=== PATIENT | female | born 1990 | race Caucasian/White ===

== ENCOUNTER 2016-10-05 21:00 | Emergency (ER) | payer OTHER ==
[2016-10-05 21:28] VITALS: BP 127/64
[2016-10-05] MEDS ORDERED: ONDANSETRON 4 MG/2 ML VIAL IVP STA (22:26)
[2016-10-05] MEDS ORDERED: KETOROLAC 30 MG/ML 1 ML VIAL IVP STA (22:26)
[2016-10-05] MEDS ORDERED: SODIUM CHLORIDE 0.9% 500 ML IV STA (22:26)
--- NOTE | 2016-10-05 22:31 | ED ---
Abdominal Pain HPI - General Chief Complaint: Abdominal Pain Stated Complaint: abdominal pain Time Seen by Provider: 10/05/16 21:46 Source: patient Mode of arrival: ambulatory Limitations: no limitations - History of Present Illness Initial Comments: This patient is a 26-year-old woman presenting to be evaluated for right-sided flank and abdominal pain. She states that the pain started about 36 hours ago, yesterday morning. She indicates the flank and right upper quadrant along the right costal margin. She states it feels like someone had punched her, but she denies any trauma or injury. The patient states that the pain is moderate, constant, and is accompanied by nausea. She has not noted any worsening or relieving factors. She states she saw the doctor but they could not tell her what it was. The patient denies any vomiting. She has not had a change in bowel movements or urination. She states that she is due to start her period next week, and that the last one was normal. No vaginal discharge. She does not have any chest pain, cough, or shortness of breath. She has not had any pain into the legs. MD Complaint: abdominal pain, flank pain Onset/Timin -: hour(s) Location: RUQ, R flank Radiation: none Severity: moderate Quality: other (Like I was punched) Consistency: constant Improves With: nothing Worsens With: nothing Associated Symptoms: nausea - Related Data Home Medications Medication Instructions Recorded Confirmed Cholecalciferol [Vitamin D3] 1,000 unit PO DAILY 10/05/16 10/05/16 Clindamycin Gel [Clindamycin 1 applic TOPICAL BID 10/05/16 10/05/16 Phosphate] Fluticasone Nasal [place] [Flonase 1 spr EA NOSTRIL DAILY PRN 10/05/16 10/05/16 Nasal [place]] Loratadine [Claritin] 10 mg PO DAILY 10/05/16 10/05/16 Minocycline HCl [Minocin] 100 mg PO Q12HR 10/05/16 10/05/16 Norgestimate-Ethinyl Estradiol 1 tab PO DAILY 10/05/16 10/05/16 [Ortho Tri-Cyclen Lo Tablet] PARoxetine HCL [Paxil] 10 mg PO DAILY 10/05/16 10/05/16 Ranitidine HCl 75 mg PO HS 10/05/16 10/05/16 Turmeric Root Extract [Turmeric] 500 mg PO DAILY 10/05/16 10/05/16 Previous Rx's Medication Instructions Recorded Dicyclomine [Bentyl] 20 mg PO QID #15 tablet 10/06/16 Allergies Allergy/AdvReac Type Severity Reaction Status Date / Time cephalexin monohydrate Allergy Rash/Hives Verified 10/05/16 21:57 [From Keflex] clemastine fumarate Allergy Fainting Verified 10/05/16 21:57 [From Tavist] Review of Systems ROS Statement: Those systems with pertinent positive or pertinent negative responses have been documented in the HPI. ROS Other: All systems not noted in ROS Statement are negative. Constitutional: Denies: fever, chills Respiratory: Denies: cough, dyspnea Cardiovascular: Denies: chest pain, palpitations, edema, syncope Gastrointestinal: Reports: abdominal pain, nausea. Denies: vomiting, diarrhea, constipation, melena, hematochezia Genitourinary: Denies: dysuria, frequency, hematuria, discharge, abnormal menses Musculoskeletal: Denies: back pain Skin: Denies: rash Neurological: Denies: headache, weakness, numbness Past Medical History Past Medical History: No Reported History Additional Past Medical History / Comment(s): lower back pain, sciatica History of Any Multi-Drug Resistant Organisms: None Reported Past Surgical History: No Surgical Hx Reported Past Psychological History: No Psychological Hx Reported Smoking Status: Current some day smoker Past Alcohol Use History: Occasional Past Drug Use History: Marijuana General Exam Limitations: no limitations General appearance: alert, in no apparent distress, obese Head exam: Present: atraumatic, normocephalic Eye exam: Present: normal appearance. Absent: scleral icterus, conjunctival injection ENT exam: Present: normal oropharynx, mucous membranes moist Neck exam: Present: normal inspection Respiratory exam: Present: normal lung sounds bilaterally. Absent: respiratory distress, wheezes, rales, rhonchi, stridor, chest wall tenderness Cardiovascular Exam: Present: regular rate, normal rhythm, normal heart sounds. Absent: systolic murmur, diastolic murmur, rubs, gallop GI/Abdominal exam: Present: soft, tenderness (The patient does have some moderate right upper quadrant tenderness, without rebound or guarding. The Robles's sign is equivocal.), normal bowel sounds. Absent: distended, guarding , rebound, rigid, organomegaly, mass, pulsatile mass, hernia Extremities exam: Present: normal inspection, normal capillary refill. Absent: pedal edema, calf tenderness Back exam: Present: normal inspection. Absent: CVA tenderness (R), CVA tenderness (L) Neurological exam: Present: alert Skin exam: Present: warm, dry, intact, normal color. Absent: rash Course Vital Signs 10/05/16 21:24 Temperature 98.9 F Pulse Rate 89 Respiratory 16 Rate Blood Pressure 127/64 O2 Sat by Pulse 100 Oximetry Medical Decision Making - Lab Data Result diagrams: 10/05/16 21:34 10/05/16 21:54 Lab Results 10/05/16 10/05/16 10/05/16 Range/Units 21:34 21:54 22:34 WBC 9.1 (3.8-10.6) k/uL RBC 4.73 (3.80-5.40) m/uL Hgb 12.7 (11.4-16.0) gm/dL Hct 38.9 (34.0-46.0) % MCV 82.3 (80.0-100.0) fL MCH 26.9 (25.0-35.0) pg MCHC 32.7 (31.0-37.0) g/dL RDW 13.3 (11.5-15.5) % Plt Count 267 (150-450) k/uL Neutrophils % 64 % Lymphocytes % 28 % Monocytes % 4 % Eosinophils % 2 % Basophils % 1 % Neutrophils # 5.8 (1.3-7.7) k/uL Lymphocytes # 2.6 (1.0-4.8) k/uL Monocytes # 0.4 (0-1.0) k/uL Eosinophils # 0.1 (0-0.7) k/uL Basophils # 0.1 (0-0.2) k/uL Sodium 139 (137-145) mmol/L Potassium 4.2 (3.5-5.1) mmol/L Chloride 105 (98-107) mmol/L Carbon Dioxide 24 (22-30) mmol/L Anion Gap 10 mmol/L BUN 12 (7-17) mg/dL Creatinine 0.91 (0.52-1.04) mg/dL Est GFR (MDRD) Af Amer >60 (>60 ml/min/1.73 sqM) Est GFR (MDRD) Non-Af >60 (>60 ml/min/1.73 sqM) Glucose 86 (74-99) mg/dL Calcium 9.4 (8.4-10.2) mg/dL Total Bilirubin 0.4 (0.2-1.3) mg/dL AST 24 (14-36) U/L ALT 24 (9-52) U/L Alkaline Phosphatase 67 (38-126) U/L Total Protein 7.9 (6.3-8.2) g/dL Albumin 4.1 (3.5-5.0) g/dL Amylase 57 (30-110) U/L Lipase 139 (23-300) U/L Urine Color Yellow Urine Appearance Clear (Clear) Urine pH 5.5 (5.0-8.0) Ur Specific [place] 1.025 (1.001-1.035) Urine Protein Trace H (Negative) Urine Glucose (UA) Negative (Negative) Urine Ketones Negative (Negative) Urine Blood Small H (Negative) Urine Nitrite Negative (Negative) Urine Bilirubin Negative (Negative) Urine Urobilinogen <2.0 (<2.0) mg/dL Ur Leukocyte Esterase Negative (Negative) Urine RBC 6 H (0-5) /hpf Ur Squamous Epith Cells 1 (0-4) /hpf Urine Mucus Rare H (None) /hpf Urine HCG, Qual (Not Detectd) 10/05/16 Range/Units 22:34 WBC (3.8-10.6) k/uL RBC (3.80-5.40) m/uL Hgb (11.4-16.0) gm/dL Hct (34.0-46.0) % MCV (80.0-100.0) fL MCH (25.0-35.0) pg MCHC (31.0-37.0) g/dL RDW (11.5-15.5) % Plt Count (150-450) k/uL Neutrophils % % Lymphocytes % % Monocytes % % Eosinophils % % Basophils % % Neutrophils # (1.3-7.7) k/uL Lymphocytes # (1.0-4.8) k/uL Monocytes # (0-1.0) k/uL Eosinophils # (0-0.7) k/uL Basophils # (0-0.2) k/uL Sodium (137-145) mmol/L Potassium (3.5-5.1) mmol/L Chloride (98-107) mmol/L Carbon Dioxide (22-30) mmol/L Anion Gap mmol/L BUN (7-17) mg/dL Creatinine (0.52-1.04) mg/dL Est GFR (MDRD) Af Amer (>60 ml/min/1.73 sqM) Est GFR (MDRD) Non-Af (>60 ml/min/1.73 sqM) Glucose (74-99) mg/dL Calcium (8.4-10.2) mg/dL Total Bilirubin (0.2-1.3) mg/dL AST (14-36) U/L ALT (9-52) U/L Alkaline Phosphatase (38-126) U/L Total Protein (6.3-8.2) g/dL Albumin (3.5-5.0) g/dL Amylase (30-110) U/L Lipase (23-300) U/L Urine Color Urine Appearance (Clear) Urine pH (5.0-8.0) Ur Specific [place] (1.001-1.035) Urine Protein (Negative) Urine Glucose (UA) (Negative) Urine Ketones (Negative) Urine Blood (Negative) Urine Nitrite (Negative) Urine Bilirubin (Negative) Urine Urobilinogen (<2.0) mg/dL Ur Leukocyte Esterase (Negative) Urine RBC (0-5) /hpf Ur Squamous Epith Cells (0-4) /hpf Urine Mucus (None) /hpf Urine HCG, Qual Not Detected (Not Detectd) Disposition Clinical Impression: Flank pain Disposition: HOME SELF-CARE Condition: Fair Instructions: Abdominal Pain (ED) Prescriptions: Dicyclomine [Bentyl] 20 mg PO QID #15 tablet Referrals: Talya Pierre DO [Primary Care Provider] - 1-2 days
[2016-10-05 22:46] LABS: Basophils # (A) 0.1 k/uL (0-0.2); Basophils % (A) 1 %; CH 26.8; CHCM 32.6; Eosinophils # (A) 0.1 k/uL (0-0.7); Eosinophils % (A) 2 %; HCT 38.9 % (34.0-46.0); HDW 2.44; HGB 12.7 gm/dL (11.4-16.0); Luc # (Auto) 0.18; Luc % (Auto) 2; Lymphocytes # (A) 2.6 k/uL (1.0-4.8); Lymphocytes % (A) 28 %; MCH 26.9 pg (25.0-35.0); MCHC 32.7 g/dL (31.0-37.0); MCV 82.3 fL (80.0-100.0); Mean Platelet Volume 7.7; Monocytes # (A) 0.4 k/uL (0-1.0); Monocytes % (A) 4 %; Neutrophils # (A) 5.8 k/uL (1.3-7.7); Neutrophils % (A) 64 %; RBC 4.73 m/uL (3.80-5.40); RDW 13.3 % (11.5-15.5); WBC 9.1 k/uL (3.8-10.6); WBC (Perox) 9.65
[2016-10-05 22:54] LABS: ALT 24 U/L (9-52); AST 24 U/L (14-36); Alkaline Phosphatase 67 U/L (38-126); Amylase 57 U/L (30-110); Anion Gap 10 mmol/L; Blood Urea Nitrogen 12 mg/dL (7-17); Calcium 9.4 mg/dL (8.4-10.2); Carbon Dioxide 24 mmol/L (22-30); Chloride 105 mmol/L (98-107); Glucose 86 mg/dL (74-99); Non-African American GFR(MDRD) >60 (>60 ml/min/1.73 sqM); Potassium 4.2 mmol/L (3.5-5.1); Sodium 139 mmol/L (137-145); Total Bilirubin 0.4 mg/dL (0.2-1.3); Total Protein 7.9 g/dL (6.3-8.2)
[2016-10-06 00:01] LABS: Appearance,Urine Clear (Clear); Bilirubin,Urine Negative (Negative); Glucose,Urine (UA) Negative (Negative); Ketones,Urine Negative (Negative); Leukocyte Esterase,Urine Negative (Negative); Mucus,Urine Rare /hpf; Nitrite,Urine Negative (Negative); PH, Urine 5.5 (5.0-8.0); Particle Count 4173; Protein,Urine Trace (Negative); RBC,Urine 6 /hpf (0-5); Specific Gravity,Urine 1.025 (1.001-1.035); Squamous Epithelial Cell,Urine 1 /hpf (0-4); UA Billing (MACRO vs. MICRO) MICRO; Urobilinogen,Urine <2.0 mg/dL (<2.0)
--- NOTE | 2016-10-06 00:37 | US ---
EXAM: US Abdomen Limited, Right Upper Quadrant. CLINICAL HISTORY: Reason: Pain, attention RUQ TECHNIQUE: Real-time ultrasound of the right upper quadrant with image documentation. COMPARISON: No relevant prior studies available. FINDINGS: Liver: Mild hepatomegaly with hepatic span of 19.5 cm. No discrete hepatic lesion is seen. Gallbladder: Unremarkable. No gallstones. Common bile duct: Unremarkable as visualized. No stones. No dilation. Pancreas: Unremarkable as visualized. Right kidney: Unremarkable. No stones. No solid mass. No hydronephrosis. IMPRESSION: 1. No evidence of gallstones or biliary ductal dilatation. 2. Mild hepatomegaly.
[2016-10-06] MEDS ORDERED: MORPHINE SULFATE 4 MG/ML SYRINGE IV STA (01:06)
[2016-10-06 01:24] VITALS: PULSE 88; RESP 18; TEMP 98.1
== END 2016-10-06 01:24 | disposition home or self-care (01) ==
LOC: EC 21:00
DX: R10.11 Right upper quadrant pain (principal); R11.0 Nausea; E66.9 Obesity, unspecified; Z68.38 Body mass index [BMI] 38.0-38.9, adult; F17.200 Nicotine dependence, unspecified, uncomplicated; Z79.899 Other long term (current) drug therapy; Z79.3 Long term (current) use of hormonal contraceptives; Z88.1 Allergy status to other antibiotic agents; Z88.8 Allergy status to other drugs, medicaments and biological substances
CPT/HCPCS: 36415; 80053; 82150; 83690; 85025; 81001; 81025; 76705; 99284; 96374; 96375 ×2; 96361 ×3; J2270; J2405; J1885

== ENCOUNTER → 2016-10-09 | Outpatient (CLI) | payer OTHER ==
--- NOTE | 2016-10-09 17:07 | NM ---
EXAMINATION TYPE: NM hepatobiliary w EF DATE OF EXAM: 10/09/2016 5:01 PM COMPARISON: NONE HISTORY: TECHNIQUE: After the intravenous administration of 5.4 mCi Tc 99m Mebrofenin hepatobiliary scintigrap hy is performed. Immediate images post injection. FINDINGS: There is prompt uptake of the liver that has normal size and contour. There is no focal liver defect. There is tracer in the gallbladder at 10 minutes and tracer in the small bowel at 16 minutes which e xcludes obstruction of the cystic duct and the common bile duct. The tracer is mostly cleared from th e liver at 60 minutes. After the ensure there is prompt contraction of the gallbladder. The ejection fraction is 76%. IMPRESSION: Normal hepatobiliary scan. Normal gallbladder ejection fraction.
== END | disposition home or self-care (01) ==
LOC: RADNMMAIN 14:49
PROVIDERS: ATTEND Family Medicine
DX: R10.11 Right upper quadrant pain (principal)
CPT/HCPCS: 78226; A9537

== ENCOUNTER 2016-12-10 08:11 | Day surgery (SDC) | payer OTHER ==
[2016-12-07 18:00] VITALS: BMI 38.7
[~2016-12-10 08:11] MED LIST: LACTATED RINGERS 1,000 ML IV SCH; LIDOCAINE 1% 20 ML VIAL (10MG/ML) FOR IV START INTRADERMA PRN
[2016-12-10] MEDS ORDERED: MIDAZOLAM 2 MG/2 ML VIAL IV ONE (08:36)
[2016-12-10 08:45] VITALS: TEMP 98.6
[2016-12-10] MEDS ORDERED: PROPOFOL 10 MG/ML 20 ML VIAL IV ONE (09:14)
[2016-12-10] MEDS ORDERED: LIDOCAINE 1% INJ 10MG/ML (20 ML MDV) ONE (09:14)
--- NOTE | 2016-12-10 09:16 | P.GSHP ---
History of Present Illness H&P Date: 12/10/16 Chief Complaint: Right upper quadrant pain This is a 18-year-old female who presents today for EGD. She's had issues right upper quadrant pain. Her recent ultrasound and HIDA scan are within normal limits. Patient has complaints of some pain after she eats. She she will be evaluated for peptic ulcer disease. - Constitutional Constitutional: Reports as per HPI Past Medical History Past Medical History: GERD/Reflux, Skin Disorder Additional Past Medical History / Comment(s): lower back pain, sciatica, Hidradenitis Suppurativa skin disorder., allergies., asthma as a child., states having RUQ abdominal pain. History of Any Multi-Drug Resistant Organisms: None Reported Past Surgical History: No Surgical Hx Reported Additional Past Anesthesia/Blood Transfusion Reaction / Comment(s): Has never received anesthesia. Past Psychological History: Anxiety, Depression Smoking Status: Current every day smoker Past Alcohol Use History: Occasional Additional Past Alcohol Use History / Comment(s): STATES >7 DRINKS PER WEEK. SMOKES 8-10 CIGARETTES /DAY. SMOKING FOR 8 YEARS. Past Drug Use History: Marijuana Additional Drug Use History / Comment(s): CURRENT MARIJUANA USE. - Past Family History Mother Family Medical History: No Reported History Medications and Allergies Home Medications Medication Instructions Recorded Confirmed Type Cholecalciferol [Vitamin D3] 4,000 unit PO DAILY 10/05/16 12/10/16 History Loratadine [Claritin] 10 mg PO DAILY 10/05/16 12/10/16 History Minocycline HCl [Minocin] 100 mg PO DAILY 10/05/16 12/10/16 History Norgestimate-Ethinyl Estradiol 1 tab PO DAILY 10/05/16 12/10/16 History [Ortho Tri-Cyclen Lo Tablet] PARoxetine HCL [Paxil] 10 mg PO DAILY 10/05/16 12/10/16 History Aspirin 650 mg PO Q8HR PRN 12/07/16 12/10/16 History Dicyclomine [Bentyl] 20 mg PO DAILY PRN 12/07/16 12/10/16 History Esomeprazole Magnesium [NexIUM] 20 mg PO DAILY 12/07/16 12/10/16 History Ibuprofen [Motrin] 800 mg PO Q8HR PRN 12/07/16 12/10/16 History Allergies Allergy/AdvReac Type Severity Reaction Status Date / Time cephalexin monohydrate Allergy Rash/Hives Verified 12/10/16 08:28 [From Keflex] clemastine fumarate Allergy Fainting Verified 12/10/16 08:28 [From Tavist] Surgical - Exam Vital Signs Temp Pulse Resp BP Pulse Ox 98.6 F 72 16 128/73 95 12/10/16 08:43 12/10/16 08:43 12/10/16 08:43 12/10/16 08:43 12/10/16 08:43 - General well developed, no distress - Eyes PERRL - ENT normal pinna - Neck no masses - Respiratory normal expansion - Cardiovascular Rhythm: regular - Abdomen Abdomen: soft, non tender Assessment and Plan Plan: Right upper quadrant pain. We'll perform EGD to evaluate for dyspepsia.
--- NOTE | 2016-12-10 09:25 | P.OP ---
Date of Procedure: 12/10/16 Preoperative Diagnosis: Epigastric and right upper quadrant abdominal pain Postoperative Diagnosis: Mild antral gastritis Moderate size hernia Mild esophagitis Procedure(s) Performed: EGD Implants: Anesthesia: MAC Surgeon: Matt Nunez Pathology: other (Antrum, esophagus) Condition: stable Disposition: PACU Indications for Procedure: Operative Findings: Description of Procedure: The patient's placed on the endoscopy table in the lateral position. She received IV sedation. The gastroscope some placed oropharynx and passed into the esophagus and into the stomach. The scope was then placed through the pylorus and duodenum. The first and second portion of duodenum appeared normal. The scope was then brought back the antrum and this appeared mildly inflamed. A biopsies performed. The scope was then retroflexed and the remainder stomach appeared normal. The GE junction was at 40 cm. The distal esophagus appeared mildly inflamed a biopsies performed. The proximal esophagus appeared normal. Scope was withdrawn for patient.
[2016-12-10 09:51] VITALS: RESP 18
[2016-12-10] MEDS ORDERED: HYDROmorphone 1 MG/ML 1 ML SYRINGE IVP ONE ×2 (09:53→10:00)
[2016-12-10 10:29] VITALS: BP 122/66; PULSE 61
== END 2016-12-10 10:40 | disposition home or self-care (01) ==
LOC: ORWHC2ENDO 08:11
PROVIDERS: ATTEND Surgery
DX: K21.0 Gastro-esophageal reflux disease with esophagitis (principal); K29.70 Gastritis, unspecified, without bleeding; K44.9 Diaphragmatic hernia without obstruction or gangrene; F12.90 Cannabis use, unspecified, uncomplicated; F32.9 Major depressive disorder, single episode, unspecified; F17.210 Nicotine dependence, cigarettes, uncomplicated; L73.2 Hidradenitis suppurativa; T78.40XA Allergy, unspecified, initial encounter; Z88.1 Allergy status to other antibiotic agents; Z88.8 Allergy status to other drugs, medicaments and biological substances; Z79.899 Other long term (current) drug therapy; Z79.3 Long term (current) use of hormonal contraceptives
CPT/HCPCS: 81025; 88305; 43239; J2250; J2001; J1170; J2704

== ENCOUNTER 2017-01-29 18:12 | Emergency (ER) | payer OTHER ==
--- NOTE | 2017-01-29 20:16 | CT ---
EXAMINATION TYPE: CT brain wo con DATE OF EXAM: 01/29/2017 COMPARISON: NONE HISTORY: Patient complains of headache and visual disturbances. Patient has a family history of stro ke. CT DLP: 609.8 mGycm. Automated Exposure Control for Dose Reduction was Utilized. TECHNIQUE: CT scan of the head is performed without contrast. FINDINGS: There is no acute intracranial hemorrhage, mass effect, or midline shift identified. The ventricles and sulci are within normal limits in size. The globes are intact and the visualized sin uses are clear. IMPRESSION: No acute intracranial hemorrhage, mass effect, or midline shift is seen.
--- NOTE | 2017-01-29 20:18 | ED ---
General Adult HPI - General Chief complaint: Neuro Symptoms/Deficit Stated complaint: disoriented Time Seen by Provider: 01/29/17 19:06 Source: patient Mode of arrival: ambulatory Limitations: no limitations - History of Present Illness Initial comments: This 26-year-old white female presents with a complaint of developing some blurry vision to her left eye as well as a bitemporal headache which started approximately 2 hours prior to arrival. She denies any previous similar incidents but has had migraine headaches in the past. Her symptoms lasted for approximately 10 minutes and then have resolved. She does also state that she felt somewhat dizzy at that time and this is described as more of a lightheadedness. She also states that she has a history of anxiety attacks and her stress has been increased recently is unsure if this all could be related to an anxiety attack. She is feeling much improved at this time. She denies any other complaints or modifying factors. She denies any neck pain. The headache was moderate in severity and is resolved currently. - Related Data Home Medications Medication Instructions Recorded Confirmed Cholecalciferol [Vitamin D3] 4,000 unit PO DAILY 10/05/16 01/29/17 Loratadine [Claritin] 10 mg PO DAILY 10/05/16 01/29/17 Minocycline HCl [Minocin] 100 mg PO DAILY 10/05/16 01/29/17 Norgestimate-Ethinyl Estradiol 1 tab PO DAILY 10/05/16 01/29/17 [Ortho Tri-Cyclen Lo Tablet] ARIPiprazole [Abilify] 2 mg PO HS 01/29/17 01/29/17 Esomeprazole Magnesium [NexIUM] 40 mg PO DAILY 01/29/17 01/29/17 PARoxetine [Paxil] 20 mg PO HS 01/29/17 01/29/17 Allergies Allergy/AdvReac Type Severity Reaction Status Date / Time cephalexin monohydrate Allergy Rash/Hives Verified 01/29/17 18:23 [From Keflex] clemastine fumarate AdvReac Syncope Verified 01/29/17 19:40 [From Tavist] phenylpropanolamine AdvReac Syncope Verified 01/29/17 19:38 Review of Systems ROS Statement: Those systems with pertinent positive or pertinent negative responses have been documented in the HPI. ROS Other: All systems not noted in ROS Statement are negative. Past Medical History Past Medical History: GERD/Reflux, Skin Disorder Additional Past Medical History / Comment(s): lower back pain, sciatica, Hidradenitis Suppurativa skin disorder., allergies., asthma as a child., states having RUQ abdominal pain. History of Any Multi-Drug Resistant Organisms: None Reported Past Surgical History: No Surgical Hx Reported Additional Past Anesthesia/Blood Transfusion Reaction / Comment(s): Has never received anesthesia. Past Psychological History: Anxiety, Depression Smoking Status: Current every day smoker Past Alcohol Use History: Occasional Past Drug Use History: Marijuana - Past Family History Mother Family Medical History: No Reported History General Exam - General Exam Comments Initial Comments: GENERAL: The patient is well nourished and well hydrated. VITAL SIGNS: Heart rate, blood pressure, respiratory rate reviewed as recorded in nurse's notes. EYES: Pupils are round and reactive. Extraocular movements are intact. No conjunctival / lid redness or swelling. ENT: No external evidence of injury, swelling, or ecchymosis. Airway is patent. Throat is clear. NECK: Nontender. No swelling or evidence of injury. No subcutaneous emphysema. Trachea is midline. No thyroid mass. HEART: Regular rate and rhythm. Good peripheral pulses. LUNGS/CHEST: Breath sounds clear and equal bilaterally. No rales, rhonchi, or wheezes. No ecchymosis, subcutaneous emphysema, or tenderness. ABDOMEN: Abdomen soft without tenderness. No palpable masses or organomegaly. No peritoneal signs. No abdominal wall swelling or ecchymosis. EXTREMITIES: No extremity tenderness. Normal muscle tone and function. No thoracolumbar tenderness. NEUROLOGIC: Sensation is grossly intact. Cranial nerve exam reveals face is symmetrical, tongue is midline, speech is clear. SKIN: No abrasions or ecchymosis is noted. No induration or masses noted. PSYCHIATRIC: Alert and oriented. Appropriate behavior and judgment. Limitations: no limitations Course Vital Signs 01/29/17 18:23 Temperature 98.7 F Pulse Rate 80 Respiratory 17 Rate Blood Pressure 135/77 O2 Sat by Pulse 100 Oximetry Medical Decision Making - Medical Decision Making The patient was seen and examined. All diagnostics were reviewed. An EKG was done and shows a normal sinus rhythm at a rate of 72. No acute ST-T wave changes are identified. The RI interval is 148, the QRS duration is 84, and the QTc interval is 413. Since she is feeling better, she refuses an IV with standard headache treatment. A computed tomography scan of the brain is completed. No acute process is identified. It is felt as though her symptom complex is likely related to an atypical migraine headache. It is felt as though she is stable for discharge. She is much improved at this time and leaves in no distress. Disposition Clinical Impression: Atypical migraine, Blurry vision, Lightheadedness Disposition: HOME SELF-CARE Condition: Good Instructions: Migraine Headache (ED) Referrals: Talya Pierre DO [Primary Care Provider] - 1-2 days Time of Disposition: 21:05
[2017-01-29 21:09] VITALS: BP 130/60; PULSE 71; RESP 21; TEMP 98.5
== END 2017-01-29 21:21 | disposition home or self-care (01) ==
LOC: EC 18:12
DX: G43.809 Other migraine, not intractable, without status migrainosus (principal); R42 Dizziness and giddiness; K21.9 Gastro-esophageal reflux disease without esophagitis; F32.9 Major depressive disorder, single episode, unspecified; F17.200 Nicotine dependence, unspecified, uncomplicated; Z88.1 Allergy status to other antibiotic agents; Z88.8 Allergy status to other drugs, medicaments and biological substances; Z79.3 Long term (current) use of hormonal contraceptives; Z79.899 Other long term (current) drug therapy
CPT/HCPCS: 70450; 93005; 99284

== ENCOUNTER 2017-08-08 18:09 | Emergency (ER) | payer OTHER ==
[2017-08-08] MEDS ORDERED: SODIUM CHLORIDE 0.9% 1,000 ML IV STA (19:00)
[2017-08-08] MEDS ORDERED: ONDANSETRON 4 MG/2 ML VIAL IVP STA (19:00)
--- NOTE | 2017-08-08 19:07 | ED ---
General Adult HPI - General Chief complaint: Abdominal Pain Stated complaint: URQ Pain Source: patient, RN notes reviewed, old records reviewed Mode of arrival: ambulatory Limitations: no limitations - History of Present Illness Initial comments: Chief complaint history of present illness is a 27-year-old female complaint of right upper quadrant pain that radiates to the right flank area and the right shoulder. The patient has had a history of gallbladder problems her last ejection fraction was too high to qualify her for surgery. Patient reports that she did eat some greasy fatty food recently. Nausea no vomiting she had loose stool earlier this morning. No fever. No aches pains. - Related Data Home Medications Medication Instructions Recorded Confirmed Cholecalciferol [Vitamin D3] 2,000 unit PO DAILY 10/05/16 08/08/17 Minocycline HCl [Minocin] 100 mg PO DAILY 10/05/16 08/08/17 Norgestimate-Ethinyl Estradiol 1 tab PO DAILY 10/05/16 08/08/17 [Ortho Tri-Cyclen Lo Tablet] Esomeprazole Magnesium [NexIUM] 40 mg PO DAILY 01/29/17 08/08/17 PARoxetine [Paxil] 20 mg PO DAILY 01/29/17 08/08/17 ARIPiprazole [Abilify] 5 mg PO DAILY 08/08/17 08/08/17 Previous Rx's Medication Instructions Recorded Ondansetron Odt [Zofran Odt] 4 mg PO Q8HR PRN #10 tab 08/08/17 Allergies Allergy/AdvReac Type Severity Reaction Status Date / Time cephalexin monohydrate Allergy Rash/Hives Verified 08/08/17 18:58 [From Keflex] clemastine fumarate AdvReac Syncope Verified 08/08/17 18:58 [From Tavist] phenylpropanolamine AdvReac Syncope Verified 08/08/17 18:58 Review of Systems ROS Statement: Those systems with pertinent positive or pertinent negative responses have been documented in the HPI. review of systems review of systems. The patient denies headache or visual acuity changes no chest pain or shortness of breath. She has right flank and upper quadrant pain that goes to the right shoulder area. Nausea but no vomiting this morning one episode of loose stool...no neuro deficits Past medical problems hidradenitis support Tyra, chronic low back pain GERD and hiatal hernia. The patient has not had any surgeries. She is scheduled to have a hiatal hernia. On August 19. Patient reports family history strong for everyone having gallbladder disease. She has ALLERGIES to cephalexin, clemastine and phenylpropanolamine.patient does smoke strongly encouraged to stop drinks and drinks alcohol socially. ROS Other: All systems not noted in ROS Statement are negative. Past Medical History Past Medical History: GERD/Reflux, Skin Disorder Additional Past Medical History / Comment(s): lower back pain, sciatica, Hidradenitis Suppurativa skin disorder., allergies., asthma as a child., states having RUQ abdominal pain. hernia History of Any Multi-Drug Resistant Organisms: None Reported Past Surgical History: No Surgical Hx Reported Additional Past Anesthesia/Blood Transfusion Reaction / Comment(s): Has never received anesthesia. Past Psychological History: Anxiety, Depression Smoking Status: Current every day smoker Past Alcohol Use History: Occasional Past Drug Use History: Marijuana - Past Family History Mother Family Medical History: No Reported History General Exam - General Exam Comments Initial Comments: General: The patient is awake and alert, in no distress, and does not appear acutely ill. complaint of her upper quadrant pain that relates around with her right flank and right shoulder area. Vital signs temperature 98.7 pulse 89 respiratory rate 16 pulse ox on percent room air blood pressure 145/81 Eye: Pupils are equal, round and reactive to light, extra-ocular movements are intact ; there is normal conjunctiva bilaterally. No signs of icterus. Ears, nose, mouth and throat: There are moist mucous membranes and no oral lesions. Neck: The neck is supple, there is no tenderness , no anterior cervical lymphadenopathy, thyroid not enlarged Cardiovascular: There is a regular rate and rhythm. No murmur, rub or gallop is appreciated. Respiratory: Lungs are clear to auscultation, respirations are non-labored, breath sounds are equal. No wheezes, stridor, rales, or rhonchi. Gastrointestinal: Soft, non-distended, minimally-tender abdomen without masses or organomegaly noted. There is no rebound . No CVA tenderness. Bowel sounds are unremarkable. Back: right upper quadrant pain radiates around to the right flank area. No rash seen. Early shingles was discussed. Musculoskeletal: Normal ROM, no tenderness, There is no pedal edema. There is no calf tenderness or swelling. Sensation intact. Pulses equal bilaterally 2+. Neurological: no neuro deficits Skin: Skin is warm and dry and no rashes or lesions are noted. Limitations: no limitations Course Vital Signs 08/08/17 08/08/17 18:22 20:43 Temperature 98.7 F 97.6 F Pulse Rate 89 74 Respiratory 16 18 Rate Blood Pressure 145/81 119/50 O2 Sat by Pulse 100 97 Oximetry Medical Decision Making - Medical Decision Making rectal decision making; the patient's here because of discomfort that starts in the right upper quadrant radiates around the back toward the right shoulder. She did eating greasy fatty meal earlier. Patient has known gallbladder issues. Patient's white count is 10 hemoglobin 10 hematocrit of 35, BUN 14 creatinine 0.88 with a GFR greater than 60. Glucose 3.9. Liver enzymes normal amylase lipase normal negative test.X-rays of the abdomen was done and reviewed by radiologist his impression is scattered gas is seen in the nondistended small bowel loops. Gas and fecal material seen in nondistended colon. There is no visceromegaly, pneumoperitoneum, or abnormal calcifications appreciated. The lung bases are clear on the osseous structures are intact. Impression overall nonobstructive bowel gas pattern. As reported by Dr. Danial garsia patient's feeling better to be discharged on Zofran told to take Tylenol or ibuprofen for pain call follow up with her surgeon. - Lab Data Result diagrams: 08/08/17 19:20 08/08/17 19:20 Lab Results 08/08/17 08/08/17 08/08/17 Range/Units 19:20 19:20 19:20 WBC 10.2 (3.8-10.6) k/uL RBC 4.71 (3.80-5.40) m/uL Hgb 10.7 L (11.4-16.0) gm/dL Hct 35.2 (34.0-46.0) % MCV 74.6 L (80.0-100.0) fL MCH 22.8 L (25.0-35.0) pg MCHC 30.6 L (31.0-37.0) g/dL RDW 16.3 H (11.5-15.5) % Plt Count 323 (150-450) k/uL Neutrophils % 66 % Lymphocytes % 28 % Monocytes % 4 % Eosinophils % 1 % Basophils % 0 % Neutrophils # 6.8 (1.3-7.7) k/uL Lymphocytes # 2.8 (1.0-4.8) k/uL Monocytes # 0.4 (0-1.0) k/uL Eosinophils # 0.1 (0-0.7) k/uL Basophils # 0.0 (0-0.2) k/uL Hypochromasia Moderate Anisocytosis Slight Microcytosis Slight Sodium 140 (137-145) mmol/L Potassium 3.9 (3.5-5.1) mmol/L Chloride 103 (98-107) mmol/L Carbon Dioxide 24 (22-30) mmol/L Anion Gap 13 mmol/L BUN 14 (7-17) mg/dL Creatinine 0.88 (0.52-1.04) mg/dL Est GFR (MDRD) Af Amer >60 (>60 ml/min/1.73 sqM) Est GFR (MDRD) Non-Af >60 (>60 ml/min/1.73 sqM) Glucose 82 (74-99) mg/dL Plasma Lactic Acid Berto (0.7-2.0) mmol/L Calcium 10.0 (8.4-10.2) mg/dL Total Bilirubin 0.3 (0.2-1.3) mg/dL AST 33 (14-36) U/L ALT 33 (9-52) U/L Alkaline Phosphatase 61 (38-126) U/L Total Protein 7.7 (6.3-8.2) g/dL Albumin 4.4 (3.5-5.0) g/dL Amylase 60 (30-110) U/L Lipase 115 (23-300) U/L Urine Color Yellow Urine Appearance Clear (Clear) Urine pH 5.0 (5.0-8.0) Ur Specific [place] 1.018 (1.001-1.035) Urine Protein Negative (Negative) Urine Glucose (UA) Negative (Negative) Urine Ketones Negative (Negative) Urine Blood Negative (Negative) Urine Nitrite Negative (Negative) Urine Bilirubin Negative (Negative) Urine Urobilinogen 0.2 (<2.0) mg/dL Ur Leukocyte Esterase Negative (Negative) Urine HCG, Qual (Not Detectd) 08/08/17 08/08/17 Range/Units 19:20 19:20 WBC (3.8-10.6) k/uL RBC (3.80-5.40) m/uL Hgb (11.4-16.0) gm/dL Hct (34.0-46.0) % MCV (80.0-100.0) fL MCH (25.0-35.0) pg MCHC (31.0-37.0) g/dL RDW (11.5-15.5) % Plt Count (150-450) k/uL Neutrophils % % Lymphocytes % % Monocytes % % Eosinophils % % Basophils % % Neutrophils # (1.3-7.7) k/uL Lymphocytes # (1.0-4.8) k/uL Monocytes # (0-1.0) k/uL Eosinophils # (0-0.7) k/uL Basophils # (0-0.2) k/uL Hypochromasia Anisocytosis Microcytosis Sodium (137-145) mmol/L Potassium (3.5-5.1) mmol/L Chloride (98-107) mmol/L Carbon Dioxide (22-30) mmol/L Anion Gap mmol/L BUN (7-17) mg/dL Creatinine (0.52-1.04) mg/dL Est GFR (MDRD) Af Amer (>60 ml/min/1.73 sqM) Est GFR (MDRD) Non-Af (>60 ml/min/1.73 sqM) Glucose (74-99) mg/dL Plasma Lactic Acid Berto 0.8 (0.7-2.0) mmol/L Calcium (8.4-10.2) mg/dL Total Bilirubin (0.2-1.3) mg/dL AST (14-36) U/L ALT (9-52) U/L Alkaline Phosphatase (38-126) U/L Total Protein (6.3-8.2) g/dL Albumin (3.5-5.0) g/dL Amylase (30-110) U/L Lipase (23-300) U/L Urine Color Urine Appearance (Clear) Urine pH (5.0-8.0) Ur Specific [place] (1.001-1.035) Urine Protein (Negative) Urine Glucose (UA) (Negative) Urine Ketones (Negative) Urine Blood (Negative) Urine Nitrite (Negative) Urine Bilirubin (Negative) Urine Urobilinogen (<2.0) mg/dL Ur Leukocyte Esterase (Negative) Urine HCG, Qual Not Detected (Not Detectd) Disposition Clinical Impression: Biliary colic Disposition: HOME SELF-CARE Condition: Fair Instructions: Abdominal Pain (ED), Biliary Colic (ED), Gallstones (ED) Additional Instructions: Do not eat greasy fatty foods. Use Zofran for nausea. Tylenol or ibuprofen for pain. Follow-up family physician and your surgeon. Prescriptions: Ondansetron Odt [Zofran Odt] 4 mg PO Q8HR PRN #10 tab PRN Reason: Nausea Referrals: Talya Pierre DO [Primary Care Provider] - 1-2 days Time of Disposition: 21:51
[2017-08-08] MEDS ORDERED: KETOROLAC 30 MG/ML 1 ML VIAL IVP STA (19:11)
[2017-08-08 19:43] LABS: Anisocytosis Slight; Basophils % (A) 0 %; Eosinophils # (A) 0.1 k/uL (0-0.7); Eosinophils % (A) 1 %; HCT 35.2 % (34.0-46.0); HGB 10.7 gm/dL (11.4-16.0); Hypochromasia Moderate; Lymphocytes # (A) 2.8 k/uL (1.0-4.8); Lymphocytes % (A) 28 %; MCH 22.8 pg (25.0-35.0); MCHC 30.6 g/dL (31.0-37.0); MCV 74.6 fL (80.0-100.0); Mean Platelet Volume 7.2; Microcytosis Slight; Monocytes # (A) 0.4 k/uL (0-1.0); Monocytes % (A) 4 %; Neutrophils # (A) 6.8 k/uL (1.3-7.7); Neutrophils % (A) 66 %; Platelet Count 323 k/uL (150-450); RBC 4.71 m/uL (3.80-5.40); RDW 16.3 % (11.5-15.5); WBC 10.2 k/uL (3.8-10.6)
[2017-08-08 19:49] LABS: ALT 33 U/L (9-52); AST 33 U/L (14-36); Albumin 4.4 g/dL (3.5-5.0); Alkaline Phosphatase 61 U/L (38-126); Amylase 60 U/L (30-110); Anion Gap 13 mmol/L; Blood Urea Nitrogen 14 mg/dL (7-17); Carbon Dioxide 24 mmol/L (22-30); Chloride 103 mmol/L (98-107); Glucose 82 mg/dL (74-99); Lipase 115 U/L (23-300); Potassium 3.9 mmol/L (3.5-5.1); Sodium 140 mmol/L (137-145); Total Bilirubin 0.3 mg/dL (0.2-1.3); Total Protein 7.7 g/dL (6.3-8.2)
--- NOTE | 2017-08-08 20:19 | XR ---
EXAMINATION TYPE: XR abdomen 2V DATE OF EXAM: 08/08/2017 CLINICAL HISTORY: Abdominal pain TECHNIQUE: Single supine KUB image of the abdomen is obtained. COMPARISON: December 17, 2015 FINDINGS: Scattered gas is seen in non-distended small bowel loops. Gas and fecal material is seen in non-distended colon. There is no visceromegaly, pneumoperitoneum, or abnormal calcification appr eciated. The lung bases are clear and the osseous structures are intact. IMPRESSION: Overall nonobstructive bowel gas pattern.
[2017-08-08 20:26] LABS: Appearance,Urine Clear (Clear); Bilirubin,Urine Negative (Negative); Blood,Urine Negative (Negative); Color,Urine Yellow; Glucose,Urine (UA) Negative (Negative); Ketones,Urine Negative (Negative); Nitrite,Urine Negative (Negative); Protein,Urine Negative (Negative); Specific Gravity,Urine 1.018 (1.001-1.035); Urobilinogen,Urine 0.2 mg/dL (<2.0)
[2017-08-08 20:27] LABS: Leukocyte Esterase,Urine Negative (Negative)
[2017-08-08 20:43] VITALS: BP 119/50
[2017-08-08 21:58] VITALS: PULSE 73; RESP 16; TEMP 97.9
== END 2017-08-08 22:03 | disposition home or self-care (01) ==
LOC: EC 18:09
DX: K80.50 Calculus of bile duct without cholangitis or cholecystitis without obstruction (principal); F32.9 Major depressive disorder, single episode, unspecified; F41.9 Anxiety disorder, unspecified; K21.9 Gastro-esophageal reflux disease without esophagitis; F17.200 Nicotine dependence, unspecified, uncomplicated; Z88.1 Allergy status to other antibiotic agents; Z88.8 Allergy status to other drugs, medicaments and biological substances; Z79.3 Long term (current) use of hormonal contraceptives; Z79.899 Other long term (current) drug therapy
CPT/HCPCS: 36415; 80053; 82150; 83605; 83690; 85025; 81003; 81025; 87086; 74019; 99284; 96374; 96375; 96361 ×3; J2405; J1885

== ENCOUNTER 2017-08-12 10:30 | Inpatient (IN) | payer OTHER ==
[2017-08-19] MEDS ORDERED: GENTAMICIN 400 MG in SODIUM CHLORIDE 0.9% 100 ML IVPB ONE (05:00)
[2017-08-19] MEDS ORDERED: CLINDAMYCIN 900 MG in DEXTROSE 5% IN WATER 50 ML IVPB ONE ×2 (05:00)
[2017-08-19] MEDS ORDERED: HEPARIN SODIUM,PORCINE 5,000 UNIT/ML 1 ML VIAL SQ ONE (05:00)
[2017-08-19] MEDS ORDERED: ONDANSETRON 4 MG/2 ML VIAL IVP ONE (05:56)
[2017-08-19] MEDS ORDERED: SCOPOLAMINE 1.5MG/72HR PATCH TRANSDERM ONE (05:56)
[2017-08-19] MEDS ORDERED: LIDOCAINE 1% 20 ML VIAL (10MG/ML) FOR IV START INTRADERMA PRN (05:56)
[2017-08-19] MEDS ORDERED: DEXAMETHASONE SOD PHOSPHATE 10 MG/ML 1 ML VIAL IV ONE (05:56)
[2017-08-19] MEDS ORDERED: MIDAZOLAM 2 MG/2 ML VIAL IV PRN (05:56)
[2017-08-19] MEDS: LACTATED RINGERS 1,000 ML IV SCH (10:05)
[2017-08-19] MEDS ORDERED: MIDAZOLAM 2 MG/2 ML VIAL IVP ONE (12:15)
--- NOTE | 2017-08-19 13:05 | P.GSHP ---
History of Present Illness H&P Date: 08/19/17 Chief Complaint: GERD, right upper quadrant pain This a 18-year-old female who's had issues with GERD. Patient sees Xena Macias PA-C. In the outpatient setting. The patient has had long-standing problems with reflux esophagitis. The patient underwent recent EGD is found have evidence of esophagitis. Patient has been well informed on the procedure of laparoscopic Mery fundoplication. The patient is aware the risk of the conversion to the open procedure, risk of injury to the stomach, liver and spleen. The patient is also a risk of recurrent GERD and dysphagia symptoms. The patient understands there is a postoperative diet of full liquids for 2 weeks after surgery.. Patient also has complaint of an quadrant pain. Her recent HIDA scan shows abnormal ejection fraction consistent with chronic cholecystitis. She will also have laparoscopic cholecystectomy performed today. Past Medical History Past Medical History: GERD/Reflux, Skin Disorder Additional Past Medical History / Comment(s): HIATAL HERNIA. ABD PAIN, RIGHT Q INTO BACK. Lower back pain, sciatica, Hidradenitis Suppurativa skin disorder., allergies., asthma as a child., states having RUQ abdominal pain. History of Any Multi-Drug Resistant Organisms: None Reported Past Surgical History: No Surgical Hx Reported Additional Past Surgical History / Comment(s): EGD Past Anesthesia/Blood Transfusion Reactions: No Reported Reaction Additional Past Anesthesia/Blood Transfusion Reaction / Comment(s): NEVER HAD GENERAL ANESTHESIA. Past Psychological History: Anxiety, Depression Smoking Status: Current every day smoker Past Alcohol Use History: Occasional Additional Past Alcohol Use History / Comment(s): STATES >7 DRINKS PER WEEK. SMOKES 8-10 CIGARETTES /DAY. SMOKING FOR 8 YEARS. Past Drug Use History: Marijuana Additional Drug Use History / Comment(s): CURRENT MARIJUANA USE. - Past Family History Mother Family Medical History: No Reported History Medications and Allergies Home Medications Medication Instructions Recorded Confirmed Type Cholecalciferol [Vitamin D3] 2,000 unit PO DAILY 10/05/16 08/13/17 History Minocycline HCl [Minocin] 100 mg PO QAM 10/05/16 08/13/17 History Norgestimate-Ethinyl Estradiol 1 tab PO QAM 10/05/16 08/13/17 History [Ortho Tri-Cyclen Lo Tablet] Esomeprazole Magnesium [NexIUM] 40 mg PO QAM 01/29/17 08/13/17 History PARoxetine [Paxil] 20 mg PO QAM 01/29/17 08/13/17 History ARIPiprazole [Abilify] 5 mg PO QAM 08/08/17 08/13/17 History Ondansetron Odt [Zofran Odt] 4 mg PO Q8HR PRN #10 tab 08/08/17 08/19/17 Rx Loratadine 20 mg PO QAM 08/13/17 08/19/17 History hydrOXYzine PAMOATE [Vistaril] 25 mg PO QAM 08/13/17 08/13/17 History Allergies Allergy/AdvReac Type Severity Reaction Status Date / Time cephalexin monohydrate Allergy Rash/Hives Verified 08/19/17 09:53 [From Keflex] clemastine fumarate AdvReac Syncope Verified 08/19/17 09:53 [From Tavist] phenylpropanolamine AdvReac Syncope Verified 08/19/17 09:53 Surgical - Exam Vital Signs Temp Pulse Resp BP Pulse Ox 98.7 F 73 18 129/59 100 08/19/17 09:45 08/19/17 09:45 08/19/17 09:45 08/19/17 09:45 08/19/17 09:45 - General well developed, no distress - Eyes PERRL - ENT normal pinna - Neck no masses - Respiratory normal expansion - Cardiovascular Rhythm: regular - Abdomen Abdomen: soft, non tender Assessment and Plan Assessment: GERD we'll perform laparoscopic Mery fundal plication Chronic cholecystitis we'll perform laparoscopic cholecystectomy.
[2017-08-19] MEDS ORDERED: NEOSTIGMINE 1 MG/ML 10 ML VIAL ONE (13:17)
[2017-08-19] MEDS ORDERED: HYDROmorphone (PF) 1 MG/ML ONE (13:17)
[2017-08-19] MEDS ORDERED: GLYCOPYRROLATE 0.2 MG/ML 2 ML VIAL ONE (13:17)
[2017-08-19] MEDS ORDERED: MIDAZOLAM 2 MG/2 ML VIAL ONE (13:17)
[2017-08-19] MEDS ORDERED: LIDOCAINE 1% INJ 10MG/ML (20 ML MDV) ONE (13:17)
[2017-08-19] MEDS ORDERED: SUCCINYLCHOLINE CHLORIDE 100 MG/5 ML SYR IV ONE (13:17)
[2017-08-19] MEDS ORDERED: CLINDAMYCIN 150 MG/ML 4 ML VIAL IVPB ONE (13:17)
[2017-08-19] MEDS ORDERED: ROCURONIUM BROMIDE 10 MG/ML 10 ML VIAL IV ONE (13:17)
[2017-08-19] MEDS ORDERED: fentaNYL (PF) 50 MCG/ML 2 ML AMP ONE (13:17)
[2017-08-19] MEDS ORDERED: PROPOFOL 10 MG/ML 20 ML VIAL IV ONE (13:17)
[2017-08-19] MEDS ORDERED: GENTAMICIN 40 MG/ML 2 ML VIAL IVPB ONE (13:34)
[2017-08-19] MEDS ORDERED: BUPIVACAINE (PF) 0.5% 30 ML VIAL SQ ONE (13:50)
[2017-08-19] MEDS ORDERED: ONDANSETRON 4 MG/2 ML VIAL IVP PRN (14:25)
--- NOTE | 2017-08-19 14:25 | P.OP ---
Date of Procedure: 08/19/17 Preoperative Diagnosis: GERD Cholecystitis Postoperative Diagnosis: GERD Cholecystitis Procedure(s) Performed: Laparoscopic cholecystectomy Laparoscopic Mery fundal plication Anesthesia: REINA Surgeon: Matt Nunez Estimated Blood Loss (ml): 10 Pathology: other (Gallbladder) Condition: stable Disposition: PACU Description of Procedure: New patient was placed on the operating table in the supine position. The patient received general anesthesia. And was placed in dorsal lithotomy position. The patient was prepped and draped in the usual sterile fashion. The skin incision sites were anesthetized with 1% local Xylocaine. The skin was incised in the left periumbilical area and then using a blade less 5 mm trocar under direct visualization panel cavity was entered. After adequate insufflation the laparoscope was then placed into the peritoneal cavity. Next a 5 mm trochars placed in the right epigastric position. Another 5 millimeter trocar the right lateral position. Another 5 millimeter trocar in the left lateral position a 5 mm trocar is placed in the left epigastric position. And then the initial 5 mm trocar was exchanged for a 10 mm trocar. The left lateral lobe liver was retracted. The hernia was seen. The crural defect was then dissected using the Harmonic scissors device. A 360 crural dissection was performed the esophagus stomach was reduced back into the peritoneal Cavity. The crural defect was then closed using 2-0 Ethibond suture. Next the fundus of the stomach was mobilized using the Stoddard scissors device. and then a 58-Telugu bougie dilator was placed oropharynx passed into the esophagus and stomach the fundal plication wrap was then performed by grasping the fundus posteriorly and bringing it around the esophagus and stomach fundoplication was then performed using 2-0 Ethibond suture. Care was taken that the fundal location rested over top of the intra-abdominal esophagus. There was no injury seen to the stomach or esophagus. The dilator was then withdrawn. The abdomen was irrigated there is no bleeding seen. A 5 mm trocar was placed at the umbilicus. Following this the laparoscope was placed in the peritoneal cavity. The patient was placed in the head-up, right side up position and then a 5 mm trocar was placed in the right lateral and right subcostal position under direct visualization. A 8 mm trocar was placed in the epigastric position. The gallbladder was grasped in the fundus and infundibulum. Traction on the gallbladder was placed in the lateral and the cephalad positions. The triangle of [place] was visualized.. The cystic duct was bluntly dissected until the union of the cystic duct and common bile duct was seen. The cystic duct was then divided and sealed with the Harmonic scissors. A PDS Endoloop was then placed throughout the cystic duct stump. The cystic artery divided and sealed with the Harmonic scissors. The gallbladder was then removed from the liver bed using Harmonic scissors. The gallbladder was then extracted through the epigastric port site. Operative field was checked for any bleeding spots and Harmonic scissors was used to coagulate the liver bed. The abdomen was irrigated. The trocars were removed. The skin was closed using interrupted 3-0 Vicryl suture. Dermabond dressing were applied. The patient tolerated the procedure well.
[2017-08-19] MEDS: HYDROmorphone 0.5 MG/0.5 ML SYRINGE IVP PRN ×2 (15:19→15:55)
[2017-08-19 17:10] VITALS: BMI 38.7
--- NOTE | 2017-08-19 17:55 | FL ---
SINGLE CONTRAST UPPER GI EXAMINATION: CLINICAL HISTORY: 27 year-old female rule out leak/obstruction status post Mery fundoplication and cholecystectomy. Total fluoroscopy time: 1 minute 1 second. Total images: 18 TECHNIQUE: Single contrast exam performed with 25 ml Omnipaque 350 contrast. FINDINGS: The patient swallowed oral contrast without difficulty or delay. Esophageal peristalsis and motility are within normal limits. However, contrast pools in the distal esophagus without any progression i nto the stomach. Recurrent episodes of intraesophageal reflux are demonstrated. There is trace post s urgical free air below the right hemidiaphragm. IMPRESSION: Severe obstruction causing contrast to remain pooled in the lower esophagus. There is no passage into the stomach. Recommend repeat exam in the morning to ensure resolution of the swelling and to rule o ut leak. Trace postsurgical free air on the right.
[2017-08-19] MEDS: HYDROmorphone 4 MG/ML 1 ML SYRINGE IVP PRN ×2 (18:07→22:25)
[2017-08-19] MEDS ORDERED: hydrOXYzine PAMOATE 25 MG CAP PO PRN (21:34)
[2017-08-19] MEDS ORDERED: ONDANSETRON ODT 4 MG TAB PO PRN (21:34)
[2017-08-19] MEDS ORDERED: LORazepam 2 MG/ML INJ IV PRN (21:50)
[2017-08-19] MEDS: D5-0.45% NACL WITH KCL 20MEQ/L 1,000 ML IV SCH (22:27)
[2017-08-20 04:11] VITALS: PULSE 54; RESP 16
[2017-08-20] MEDS: D5-0.45% NACL WITH KCL 20MEQ/L 1,000 ML IV SCH ×2 (04:24→09:01)
[2017-08-20] MEDS: HYDROmorphone 4 MG/ML 1 ML SYRINGE IVP PRN (06:41)
[2017-08-20] MEDS ORDERED: HYDROcodone/APAP 5-325MG 1 EACH TAB PO PRN (08:14)
[2017-08-20 08:21] VITALS: BP 108/55; TEMP 98.2
[2017-08-20] MEDS: LACTATED RINGERS 1,000 ML IV SCH (08:33)
[2017-08-20] MEDS ORDERED: ENOXAPARIN 40 MG/0.4 ML SYRINGE SQ SCH (09:00)
[2017-08-20] MEDS ORDERED: NORGESTIMATE ETHINYL ESTRADIOL PO SCH (09:00)
[2017-08-20] MEDS ORDERED: MINOCYCLINE 50 MG CAP PO SCH (09:00)
[2017-08-20] MEDS ORDERED: PARoxetine 20 MG TAB PO SCH (09:00)
[2017-08-20] MEDS ORDERED: LORATADINE 10 MG TAB PO SCH (09:00)
[2017-08-20] MEDS ORDERED: ARIPiprazole 5 MG TAB PO SCH (09:00)
[2017-08-20 09:15] LABS: Anion Gap 7 mmol/L; Anisocytosis Slight; Basophils % (A) 0 %; Blood Urea Nitrogen 9 mg/dL (7-17); Calcium 9.4 mg/dL (8.4-10.2); Carbon Dioxide 28 mmol/L (22-30); Chloride 104 mmol/L (98-107); Eosinophils % (A) 0 %; Glucose 115 mg/dL (74-99); HCT 34.1 % (34.0-46.0); HGB 10.1 gm/dL (11.4-16.0); Hypochromasia Slight; Lymphocytes % (A) 26 %; MCH 22.9 pg (25.0-35.0); MCHC 29.7 g/dL (31.0-37.0); MCV 77.1 fL (80.0-100.0); Mean Platelet Volume 7.4; Microcytosis Slight; Monocytes # (A) 0.4 k/uL (0-1.0); Monocytes % (A) 5 %; Neutrophils # (A) 5.2 k/uL (1.3-7.7); Neutrophils % (A) 67 %; Platelet Count 266 k/uL (150-450); Potassium 4.1 mmol/L (3.5-5.1); RBC 4.42 m/uL (3.80-5.40); Sodium 139 mmol/L (137-145); WBC 7.8 k/uL (3.8-10.6)
--- NOTE | 2017-08-20 10:26 | P.CONS ---
History of Present Illness - Reason for Consult Consult date: 08/20/17 Medical management Requesting physician: Matt Nunez - Chief Complaint Status post Mery fundoplication and laparoscopic cholecystectomy - History of Present Illness This is a 27-year-old female, patient of Dr. Ramirez. She has a known past medical history of GERD, esophagitis, anxiety depression, and chronic cholecystitis. She had abnormal HIDA scan with a low ejection fraction. She underwent a Mery fundoplication and laparoscopic cholecystectomy yesterday afternoon. Patient's upper GI shows severe obstruction causing contrast remained pooled in the lower esophagus. Patient is scheduled for a repeat study this morning. And is currently only taking and ice chips. She is complaining of some abdominal pain. Denies any nausea or vomiting. She has been up and ambulating. Passing gas no bowel movements. Has been using the incentive spirometer. Patient reports that after using incentive spirometer she does have some chest discomfort. She was able to in the hallways without any issues. We've been consulted for medical management. Denies any fever or chills or sweats. Denies any nausea vomiting. Denies any chest pain shortness breath. Denies any bowel movement changes or urinary symptoms. Review of Systems Please refer to HPI otherwise unremarkable Past Medical History Past Medical History: GERD/Reflux, Skin Disorder Additional Past Medical History / Comment(s): HIATAL HERNIA. ABD PAIN, RIGHT Q INTO BACK. Lower back pain, sciatica, Hidradenitis Suppurativa skin disorder., allergies., asthma as a child., states having RUQ abdominal pain. History of Any Multi-Drug Resistant Organisms: None Reported Past Surgical History: No Surgical Hx Reported Additional Past Surgical History / Comment(s): EGD Past Anesthesia/Blood Transfusion Reactions: No Reported Reaction Additional Past Anesthesia/Blood Transfusion Reaction / Comm: NEVER HAD GENERAL ANESTHESIA. Past Psychological History: Anxiety, Depression Smoking Status: Current every day smoker Past Alcohol Use History: Occasional Additional Past Alcohol Use History / Comment(s): STATES >7 DRINKS PER WEEK. SMOKES 8-10 CIGARETTES /DAY. SMOKING FOR 8 YEARS. Past Drug Use History: Marijuana Additional Drug Use History / Comment(s): CURRENT MARIJUANA USE. - Past Family History Mother Family Medical History: No Reported History Additional Family Medical History / Comment(s): lupus, fibro, hiatal hernia Father Additional Family Medical History / Comment(s): neurofibromatosis Medications and Allergies Home Medications Medication Instructions Recorded Confirmed Type Cholecalciferol [Vitamin D3] 2,000 unit PO DAILY 10/05/16 08/19/17 History Minocycline HCl [Minocin] 100 mg PO QAM 10/05/16 08/19/17 History Norgestimate-Ethinyl Estradiol 1 tab PO QAM 10/05/16 08/19/17 History [Ortho Tri-Cyclen Lo Tablet] Esomeprazole Magnesium [NexIUM] 40 mg PO QAM 01/29/17 08/19/17 History PARoxetine [Paxil] 20 mg PO QAM 01/29/17 08/19/17 History ARIPiprazole [Abilify] 5 mg PO QAM 08/08/17 08/19/17 History Ondansetron Odt [Zofran Odt] 4 mg PO Q8HR PRN #10 tab 08/08/17 08/19/17 Rx Loratadine 20 mg PO QAM 08/13/17 08/19/17 History hydrOXYzine PAMOATE [Vistaril] 25 mg PO QAM 08/13/17 08/19/17 History Allergies Allergy/AdvReac Type Severity Reaction Status Date / Time cephalexin monohydrate Allergy Rash/Hives Verified 08/19/17 16:27 [From Keflex] clemastine fumarate AdvReac Syncope Verified 08/19/17 16:27 [From Tavist] phenylpropanolamine AdvReac Syncope Verified 08/19/17 16:27 Physical Exam Vitals: Vital Signs Temp Pulse Pulse Pulse Resp BP BP 08/20/17 07:00 98.2 F 54 L 16 108/55 08/20/17 02:19 97.7 F 55 L 100/54 08/19/17 20:10 97.5 F L 54 L 16 117/71 08/19/17 18:45 54 L 135/67 08/19/17 18:30 52 L 130/58 08/19/17 18:15 48 L 116/58 08/19/17 18:00 64 134/63 08/19/17 17:45 61 117/62 08/19/17 17:30 53 L 111/57 08/19/17 17:15 57 L 123/68 08/19/17 17:00 69 20 129/69 08/19/17 15:48 55 L 16 119/61 08/19/17 15:32 53 L 16 125/70 08/19/17 15:15 53 L 16 122/67 08/19/17 15:00 49 L 16 121/60 08/19/17 14:43 97.6 F 60 14 141/68 08/19/17 12:30 78 16 103/67 08/19/17 10:56 68 16 112/53 Pulse Ox 08/20/17 07:00 100 08/20/17 02:19 97 08/19/17 20:10 96 08/19/17 18:45 08/19/17 18:30 08/19/17 18:15 08/19/17 18:00 08/19/17 17:45 08/19/17 17:30 08/19/17 17:15 08/19/17 17:00 97 08/19/17 15:48 100 08/19/17 15:32 100 08/19/17 15:15 100 08/19/17 15:00 100 08/19/17 14:43 99 08/19/17 12:30 100 08/19/17 10:56 98 Intake and Output 08/19/17 08/20/17 08/20/17 22:59 06:59 14:59 Intake Total 475 Balance 475 Intake: IV 475 Other: # Voids 0 1 1 Weight 108.862 kg Head normocephalic Neck supple Lungs clear to auscultation bilaterally no wheezing or crackles Heart regular rate and rhythm S1-S2, no rub or gallop Abdomen is soft nontender nondistended hypoactive bowel sounds no hepatosplenomegaly Extremities no edema Neuro alert and orientated to 3 Results CBC & Chem 7: 08/20/17 08:50 08/20/17 08:50 Labs: Abnormal Lab Results - Last 24 Hours (Table) 08/20/17 08/20/17 Range/Units 08:50 08:50 Hgb 10.1 L (11.4-16.0) gm/dL MCV 77.1 L (80.0-100.0) fL MCH 22.9 L (25.0-35.0) pg MCHC 29.7 L (31.0-37.0) g/dL RDW 16.0 H (11.5-15.5) % Glucose 115 H (74-99) mg/dL Assessment and Plan Assessment: 1. GERD status post Mery fundoplication. Obstruction noted on upper GI. Repeat study pending. surgery following closely 2. Chronic cholecystitis: HIDA scan had shown an abnormal ejection fraction. Patient laparosc status postopic cholecystectomy 3. History of anxiety and depression 4. Nicotine dependence: Discussed smoking cessation. Patient refuses nicotine patch DVT prophylaxis subcu heparin and GI prophylaxis Protonix Medications and laboratory results have been reviewed. Thank you for this consultation. We'll continue to follow along during patient' s hospitalization Time with Patient: Greater than 30 (Greater than 50% of the total time spent in counseling and coordination of care.I performed an examination of the patient and discussed their management with the physician Supervisor Garage. I have reviewed the Physician Supervisor Garage's notes and agree with the documented findings and plan of care)
--- NOTE | 2017-08-20 10:32 | FL ---
EXAMINATION TYPE: FL barium swallow DATE OF EXAM: 08/20/2017 COMPARISON: 08/19/2017 HISTORY: Status post Jean fundoplication, previous obstruction TECHNIQUE: A single contrast UGI study is performed. FINDINGS: Contrast passes through the Jean fundoplication with mild hesitancy. Complete emptying of the distal esophagus was observed spontaneously during the exam. No free air is noted during this examination. Overhead radiographs were obtained which are unremarkable. IMPRESSIONS: 1. No extravasation of contrast post Jean fundoplication. 2. Previous obstruction has resolved
[2017-08-20] MEDS: PANTOPRAZOLE 40 MG TABLET PO SCH ×2 (10:55→11:00)
[2017-08-20] MEDS ORDERED: CHOLECALCIFEROL 1,000 UNIT TAB PO SCH (12:00)
--- NOTE | 2017-08-20 12:45 | P.DS ---
Providers Date of admission: 08/19/17 09:18 Expected date of discharge: 08/20/17 Attending physician: Matt Nunez Consults: 08/19/17 14:25 Consult Physician Routine Consulting Provider: Sal Costa Consult Reason/Comments: Medical management Do you want consulting provider notified?: Yes Primary care physician: Talya Pierre [facility] Course: 27-year-old female who is a patient of Dr. Pierre's presented to undergo laparoscopic cholecystectomy and laparoscopic Mery fundalplication done on August 19. Patient has had a long-standing problem with reflux esophagitis. Underwent a recent EGD which showed evidence of esophagitis. Additionally patient's been having right upper quadrant abdominal pain With chronic cholecystitis Patient did have a single contrast upper GI study done on August 20 it showed no free air noted. No evidence of a leak. On the day of discharge patient was up ambulatory on the unit pain medication effective for pain control tolerating a diet Patient was felt to be hemodynamically stable and appropriate proceed with discharge to home Impression discharge diagnoses Chronic right upper quadrant abdominal pain likely due to chronic cholecystitis Chronic reflux esophagitis recent EGD showed evidence of esophagitis Morbid obesity BMI 38 Status post laparoscopic cholecystectomy for cholecystitis done on August 19 Status post laparoscopic Mery fundoplication done on August 19 for symptomatic esophageal reflux symptoms Abnormal HIDA scan with a low ejection fraction The above impression and plan of care have been discussed and directed by signing physician. Noemi Orosco nurse practitioner acting as scribe for signing physician. Plan - Discharge Summary Discharge Rx Participant: Yes New Discharge Prescriptions: New HYDROcodone/APAP 7.5-325MG [[place] 7.5-325] 1 tab PO Q4H PRN #30 tab PRN Reason: Mild Breakthrough Pain Continue Norgestimate-Ethinyl Estradiol [Ortho Tri-Cyclen Lo Tablet] 1 tab PO QAM Cholecalciferol [Vitamin D3] 2,000 unit PO DAILY Minocycline HCl [Minocin] 100 mg PO QAM PARoxetine [Paxil] 20 mg PO QAM Esomeprazole Magnesium [NexIUM] 40 mg PO QAM ARIPiprazole [Abilify] 5 mg PO QAM Ondansetron Odt [Zofran ODT] 4 mg PO Q8HR PRN #10 tab PRN Reason: Nausea hydrOXYzine PAMOATE [Vistaril] 25 mg PO QAM Loratadine 20 mg PO QAM Discharge Medication List Cholecalciferol [Vitamin D3] 2,000 unit PO DAILY 10/05/16 [History] Minocycline HCl [Minocin] 100 mg PO QAM 10/05/16 [History] Norgestimate-Ethinyl Estradiol [Ortho Tri-Cyclen Lo Tablet] 1 tab PO QAM [History] Esomeprazole Magnesium [NexIUM] 40 mg PO QAM 01/29/17 [History] PARoxetine [Paxil] 20 mg PO QAM 01/29/17 [History] ARIPiprazole [Abilify] 5 mg PO QAM 08/08/17 [History] Ondansetron Odt [Zofran ODT] 4 mg PO Q8HR PRN #10 tab 08/08/17 [Rx] Loratadine 20 mg PO QAM 08/13/17 [History] hydrOXYzine PAMOATE [Vistaril] 25 mg PO QAM 08/13/17 [History] HYDROcodone/APAP 7.5-325MG [[place] 7.5-325] 1 tab PO Q4H PRN #30 tab 08/20/17 [Rx ] Follow up Appointment(s)/Referral(s): Matt Nunez MD [STAFF PHYSICIAN] - 1 Week Activity/Diet/Wound Care/Special Instructions: Patient has control pills from home in med box that need to be retrieved at discharge. No tub bath for six weeks. Shower daily. No lifting over 4 pounds for the next 6 weeks. May use ice packs to surgical site. No driving while taking narcotic for pain. Discharge Disposition: HOME SELF-CARE
== END 2017-08-20 13:55 | disposition home or self-care (01) | DRG 328 ==
LOC: 2ORWHC 08-19 09:18 → 3SUR 08-19 14:38
PROVIDERS: ADMIT Surgery; ATTEND Surgery
PROC: 0DV44ZZ Restriction of Esophagogastric Junction, Percutaneous Endoscopic Approach (ICD-10-PCS; principal; 2017-08-19 10:30)
PROC: 0FT44ZZ Resection of Gallbladder, Percutaneous Endoscopic Approach (ICD-10-PCS; 2017-08-19 10:30)
DX: K21.0 Gastro-esophageal reflux disease with esophagitis (principal); E66.01 Morbid (severe) obesity due to excess calories; K81.1 Chronic cholecystitis; L73.2 Hidradenitis suppurativa; F17.210 Nicotine dependence, cigarettes, uncomplicated; F12.90 Cannabis use, unspecified, uncomplicated; F41.9 Anxiety disorder, unspecified; F32.9 Major depressive disorder, single episode, unspecified; Z79.899 Other long term (current) drug therapy; Z88.1 Allergy status to other antibiotic agents; Z88.8 Allergy status to other drugs, medicaments and biological substances; Z87.19 Personal history of other diseases of the digestive system; Z71.6 Tobacco abuse counseling; Z68.38 Body mass index [BMI] 38.0-38.9, adult
CPT/HCPCS: 74210; 74220; 80048; 81025; 85025; 88304

== ENCOUNTER → 2017-08-13 | Outpatient (CLI) | payer OTHER ==
--- NOTE | 2017-08-13 12:27 | US ---
EXAMINATION TYPE: US gallbladder DATE OF EXAM: 08/13/2017 COMPARISON: Limited abdominal ultrasound October 05, 2016 CLINICAL HISTORY: Rt Upper Quad Pain R10.11. RUQ pain EXAM MEASUREMENTS: Liver Length: 19.0 cm Gallbladder Wall: 0.2 cm CBD: 0.3 cm Right Kidney: 12.5 x 4.8 x 5.2 cm Pancreas: wnl Liver: Possible hepatomegaly unchanged from prior Gallbladder: wnl Evidence for sonographic Robles's sign: No CBD: wnl Right Kidney: wnl, lower pole gassed out Liver size is slightly prominent projecting below inferior margin of right kidney on sagittal images and is slightly heterogeneous appearance, no significant change from prior. IMPRESSION: No shadowing mobile gallstones or ultrasound evidence for acute cholecystitis.
--- NOTE | 2017-08-13 15:07 | NM ---
EXAMINATION TYPE: NM hepatobiliary w CCK DATE OF EXAM: 08/13/2017 COMPARISON: Gallbladder ultrasound earlier today. HISTORY: Right upper quadrant pain per order. Pain for one year with heartburn, reflux, nausea, vomit ing, constipation, gassiness, and diarrhea symptoms per patient. TECHNIQUE: After the intravenous administration of 6 mCi Tc 99m Mebrofenin hepatobiliary scintigraphy is performed. Immediate images post injection. FINDINGS: There is satisfactory initial accumulation of tracer by the liver. The gallbladder is visualized wit hin 30 minutes. The small bowel activity is noted within 40 minutes. At one hour CCK was administer ed, patient was injected with 2.2 mcg of Kinevac, and gallbladder ejection fraction is calculated at 11 %, diminished from the normal range. Patient also experienced increased pain and nausea after CCK injection. Therefore there is no scintigraphic evidence of cystic or common bile duct obstruction to suggest acute cholecystitis . IMPRESSION: Patient become symptomatic with diminished ejection fraction of 11% upon CCK injection, s cintigraphic findings are consistent with underlying gallbladder dyskinesia.
== END | disposition home or self-care (01) ==
LOC: RADUSMAIN 11:17
PROVIDERS: ATTEND Surgery
DX: R10.11 Right upper quadrant pain (principal)
CPT/HCPCS: 76705; 78227; A9537; J2805